=== PATIENT | female | born 1955 | race Caucasian/White ===

== ENCOUNTER 2016-07-30 09:06 | Emergency (ER) | payer MEDICARE, MEDICAID ==
[2016-07-30 10:24] LABS: BASOPHILS 0.9 % (0.0-2.0); EOSINOPHILS 0.6 % (0-7); HEMATOCRIT 35.8 % (36.0-48.0); HEMOGLOBIN 10.2 g/dL (12-16); IMMATURE GRANULOCYTES 0.3 % (0-5); LYMPHOCYTES 14.5 % (15-50); MCH 22.5 pg (26.0-34.0); MCHC 28.5 g/dL (31.0-37.0); MEAN PLATELET VOLUME 8.4 fL (7.4-10.4); MONOCYTES 9.6 % (2-11); NEUTROPHILS 74.1 % (40-80); PLATELET COUNT 419 10x3/uL (130-400); RBC 4.53 10x6/uL (4.00-5.40); WBC 6.9 10x3/uL (4.8-10.8)
[2016-07-30 10:39] LABS: ALBUMIN 3.4 g/dL (3.4-5.0); ALKALINE PHOSPHATASE 94 U/L (46-116); ALT (SGPT) 19 U/L (10-68); CALC OSMOLALITY 271 mosm/kg (275-300); CALCIUM 9.3 mg/dL (8.5-10.1); CARBON DIOXIDE 30.4 mmol/L (21.0-32.0); CHLORIDE - SERUM 99 mmol/L (98-107); CREATININE - SERUM 0.8 mg/dL (0.6-1.3); POTASSIUM - SERUM 4.5 mmol/L (3.5-5.1); PROTEIN - SERUM 6.8 g/dL (6.4-8.2); SODIUM 136 mmol/L (136-145); UREA NITROGEN 13 mg/dL (7-18); eGFR NON AFRICAN AMERICAN 77 mL/min (90-120)
[2016-07-30 10:40] LABS: GLUCOSE 101 mg/dL (74-106)
[2016-07-30 10:49] LABS: CHOL - HDL RATIO 1.5 ratio (2.3-4.1); CHOLESTEROL, TOTAL 165 mg/dL (0-200); CKMB 1.3 U/L (0.0-3.6); CREATINE KINASE 58 UL (21-215); HDL CHOLESTEROL 107 mg/dL (32-96); LDL CHOLESTEROL 48 mg/dL (0-100); LDL-HDL RATIO 0.4 ratio (1.5-3.5); TRIGLYCERIDE 52 mg/dL (30-200); TROPONIN-I < 0.017 ng/mL (0.000-0.060)
== END 2016-07-30 15:29 | disposition home or self-care (01) ==
LOC: D.ER 09:06
PROVIDERS: Emergency Medicine
DX: K21.9 Gastro-esophageal reflux disease without esophagitis (principal); I44.0 Atrioventricular block, first degree; I25.10 Atherosclerotic heart disease of native coronary artery without angina pectoris; I10 Essential (primary) hypertension; F03.90 Unspecified dementia, unspecified severity, without behavioral disturbance, psychotic disturbance, mood disturbance, and anxiety